=== PATIENT | male | born 1950 | race Caucasian/White ===

== ENCOUNTER 2016-08-21 18:23 | Emergency (ER) | payer BC, MEDICARE ==
[~2016-08-21] VITALS: Ht 188 cm; Wt 86.2 kg
[2016-08-21 19:13] LABS: BASO # 0.1 x10^3/uL (0.0-0.2); BASO % 1 % (0-3); EOS % 4 % (0-3); HEMATOCRIT 40.5 % (39.0-53.0); HEMOGLOBIN 13.8 g/dL (13.0-17.5); LYMPH # 2.5 x10^3/uL (1.0-4.8); LYMPH % 40 % (24-48); MEAN CORPUSCULAR HEMOGLOBIN 30 pg (25-35); MEAN CORPUSCULAR HGB CONC 34 g/dL (31-37); MEAN CORPUSCULAR VOLUME 89 fL (79-100); MONO % 11 % (0-9); NEUT % 44 % (31-73); PLATELET COUNT 150 x10^3/uL (140-400); RED BLOOD COUNT 4.54 x10^6/uL (4.30-5.70); RED CELL DISTRIBUTION WIDTH 14.1 % (11.5-14.5); WHITE BLOOD COUNT 6.2 x10^3/uL (4.0-11.0)
[2016-08-21 19:28] LABS: CALCIUM 9.2 mg/dL (8.5-10.1); CREATININE 0.8 mg/dL (0.7-1.3); GFR 96.7
--- NOTE | 2016-08-21 19:49 | PHYS DOC ---
Past Medical History Past Medical History: CAD, GERD, High Cholesterol, Hypertension, [place] Additional Past Medical Histor: [facility] Past Surgical History: Appendectomy Additional Past Surgical Histo: CARDIAC STENTS, R SHOULDER Alcohol Use: Rarely Drug Use: None Adult General Chief Complaint Chief Complaint: CHEST PAIN HPI HPI Patient is a 65 year old male with CAD who presents by EMS for 4 more episodes of midsternal chest discomfort associated with nausea, fatigue, and lightheadedness that have occurred intermittently since 1300 today. Nonexertional. States these episodes last for minutes. He took a nitroglycerin sublingual at home prior to calling EMS without relief of his symptoms. He is feeling better after nitroglycerin and aspirin that EMS gave him. He denies cough, dyspnea, palpitations, diaphoresis, fever or chills, vomiting, diarrhea, bloody or dark stools, orthopnea, leg pain or swelling, hemoptysis. States his chemical unit operator is Dr. Bocanegra at [facility]. Review of Systems Review of Systems Constitutional: Denies fever or chills [] Eyes: Denies change in visual acuity, redness, or eye pain [] HENT: Denies nasal congestion or sore throat [] Respiratory: Denies cough or shortness of breath [] Cardiovascular: No additional information not addressed in HPI [] GI: Denies abdominal pain, vomiting, bloody stools or diarrhea [] : Denies dysuria or hematuria [] Musculoskeletal: Denies back pain or joint pain [] Integument: Denies rash or skin lesions [] Neurologic: Denies headache, focal weakness or sensory changes [] Endocrine: Denies polyuria or polydipsia [] Allergies Allergies Allergies Coded Allergies Type Severity Reaction Last Updated Verified No Known Drug Allergies 08/21/16 No Physical Exam Physical Exam Constitutional: Well developed, well nourished, no acute distress, non-toxic appearance. [] HENT: Normocephalic, atraumatic, bilateral external ears normal, oropharynx moist, no oral exudates, nose normal. [] Eyes: PERRLA, EOMI, conjunctiva normal, no discharge. [] Neck: Normal range of motion, no tenderness, supple, no stridor. [] Cardiovascular:Heart rate regular rhythm, no murmur [] Lungs & Thorax: Bilateral breath sounds clear to auscultation [] Abdomen: Bowel sounds normal, soft, no tenderness, no masses, no pulsatile masses. [] Skin: Warm, dry, no erythema, no rash. [] Back: No tenderness, no CVA tenderness. [] Extremities: No tenderness, no cyanosis, no clubbing, ROM intact, no edema. [] Neurologic: Alert and oriented X 3, normal motor function, normal sensory function, no focal deficits noted. [] Psychologic: Affect normal, judgement normal, mood normal. [] Current Patient Data Vital Signs Vital Signs Date Time Temp Pulse Resp B/P (MAP) Pulse Ox O2 Delivery O2 Flow Rate FiO2 08/21/16 20:05 64 18 170/97 (121) 98 Room Air 08/21/16 18:23 98.5 98.5 Lab Values Laboratory Tests Test 08/21/16 18:35 White Blood Count 6.2 x10^3/uL (4.0-11.0) Red Blood Count 4.54 x10^6/uL (4.30-5.70) Hemoglobin 13.8 g/dL (13.0-17.5) Hematocrit 40.5 % (39.0-53.0) Mean Corpuscular Volume 89 fL (79-100) Mean Corpuscular Hemoglobin 30 pg (25-35) Mean Corpuscular Hemoglobin Concent 34 g/dL (31-37) Red Cell Distribution Width 14.1 % (11.5-14.5) Platelet Count 150 x10^3/uL (140-400) Neutrophils (%) (Auto) 44 % (31-73) Lymphocytes (%) (Auto) 40 % (24-48) Monocytes (%) (Auto) 11 % (0-9) H Eosinophils (%) (Auto) 4 % (0-3) H Basophils (%) (Auto) 1 % (0-3) Neutrophils # (Auto) 2.7 x10^3uL (1.8-7.7) Lymphocytes # (Auto) 2.5 x10^3/uL (1.0-4.8) Monocytes # (Auto) 0.7 x10^3/uL (0.0-1.1) Eosinophils # (Auto) 0.2 x10^3/uL (0.0-0.7) Basophils # (Auto) 0.1 x10^3/uL (0.0-0.2) Sodium Level 142 mmol/L (136-145) Potassium Level 4.0 mmol/L (3.5-5.1) Chloride Level 105 mmol/L (98-107) Carbon Dioxide Level 28 mmol/L (21-32) Anion Gap 9 (6-14) Blood Urea Nitrogen 14 mg/dL (8-26) Creatinine 0.8 mg/dL (0.7-1.3) Estimated GFR (Cockcroft-Gault) 96.7 Glucose Level 100 mg/dL (70-99) H Calcium Level 9.2 mg/dL (8.5-10.1) Troponin I Quantitative < 0.017 ng/mL (0.000-0.055) JU-Imu-O-Type Natriuretic Peptide 245 pg/mL (0-124) H Laboratory Tests 08/21/16 18:35 Laboratory Tests 08/21/16 18:35 EKG EKG EKG as interpreted by me as normal sinus rhythm, rate 63, no ST-T changes, normal intervals, no ectopy Radiology/Procedures Radiology/Procedures Chest xray as interpreted by me with no acute cardiopulmonary disease process Course & Med Decision Making Course & Med Decision Making Pertinent Labs and Imaging studies reviewed. (See chart for details) Workup is unremarkable. Have concern for unstable angina. Recommend admission for cardiologic consult. He prefers to be transferred to [facility] to see his chemical unit operator, Dr. Bocanegra. Discussed with Alice, [facility] transfer line, and Dr. Tinoco , transfer physician at [facility], who will speak with cardiology for acceptance. 2100, [facility] has accepted the transfer. He has signed paperwork for EMS transfer; it was placed on chart. Dragon Disclaimer Dragon Disclaimer This electronic medical record was generated, in whole or in part, using a voice recognition dictation system. Departure Departure Impression: Primary Impression: Unstable angina Disposition: 05 TRANSFER OTHER ([facility]) Condition: STABLE Elisha JOHNS MD August 21, 2016 19:49
[2016-08-21 21:04] VITALS: BP 167/94
--- NOTE | 2016-08-22 06:34 | EKG ---
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
--- NOTE | 2016-08-22 08:47 | RAD ---
Indication chest pain. PA and lateral views of the chest were obtained. No prior imaging of the chest is available. The heart and pulmonary vessels appear normal. The lungs are clear. There is no pleural fluid or pneumothorax. The visualized bony structures appear grossly intact. IMPRESSION: No acute or focal process is seen in the chest
== END 2016-08-21 21:48 | disposition short-term general hospital (02) ==
LOC: ER 18:23
DX: I20.0 Unstable angina (principal); I25.110 Atherosclerotic heart disease of native coronary artery with unstable angina pectoris; K21.9 Gastro-esophageal reflux disease without esophagitis; E78.00 Pure hypercholesterolemia, unspecified; I25.2 Old myocardial infarction; I10 Essential (primary) hypertension; Z95.5 Presence of coronary angioplasty implant and graft
CPT/HCPCS: 36415; 71020; 80048; 83880; 84484; 85027; 93005; 99285-25